=== PATIENT | male | born 1945 | race Caucasian/White ===

== ENCOUNTER 2017-04-13 19:05 | Emergency (ER) | payer MEDICARE ==
[~2017-04-13] VITALS: Ht 167.6 cm; Wt 74.0 kg
[2017-04-13 19:10] VITALS: Ht 167.6 cm; Wt 74.0 kg
[2017-04-13] MEDS ORDERED: AMOX1TAB10 PO (20:31)
--- NOTE | 2017-04-13 20:38 | ERD ---
ER Documentation Chief Complaint Date/Time DATE: 04/13/17 TIME: 20:36 Chief Complaint dog bite back area HPI 71-year-old male presents here in emergency department for complaints of a dog bite wound on the right back area today. Patient last tetanus immunization was 3 years ago. Patient is complaining of pain sharp pain 4/10 scale, is worse upon touching the area. The dog had complete immunizations. Patient did not take any medications to help with symptoms. ROS All systems reviewed and are negative except as per history of present illness. Medications Home Meds Active Scripts Amoxicillin/Potassium Clav (Amox-Clav 875-125 mg Tablet) 875-125 mg Tab, 1 TAB PO BID for 7 Days, #14 TAB Prov:JANELLE JUÁREZ NP 04/13/17 Allergies Allergies: Coded Allergies: No Known Allergy (Unverified , 04/13/17) PMhx/Soc last tetanus immunization 3 yrs ago Medical and Surgical Hx: pt denies Surgical Hx History of Surgery: No Anesthesia Reaction: No Hx Neurological Disorder: No Hx Respiratory Disorders: No Hx Cardiac Disorders: Yes (htn) Hx Psychiatric Problems: No Hx Miscellaneous Medical Probl: No Hx Alcohol Use: No Hx Substance Use: No Hx Tobacco Use: No Smoking Status: Never smoker FmHx Family History: No coronary disease, No diabetes, No other Physical Exam Vitals Vital Signs Date Time Temp Pulse Resp B/P Pulse Ox O2 Delivery O2 Flow Rate FiO2 04/13/17 19:10 97.8 90 20 149/66 98 Physical Exam GENERAL: The patient is well developed and appropriate for usual state of health, in no apparent distress. CHEST: Clear to auscultation bilaterally. There are no rales, wheezes or rhonchi. HEART: Regular rate and rhythm. No murmurs, clicks, rubs or gallops. No S3 or S4. ABDOMEN: Soft, nontender and nondistended. Good bowel sounds. No rebound or guarding. No gross peritonitis. No gross organomegaly or masses. No Sunshine sign or McBurney point tenderness. BACK: No midline or flank tenderness. EXTREMITIES: Equal pulses bilaterally. There is no peripheral clubbing, cyanosis or edema. No focal swelling or erythema. Full range of motion. Grossly neurovascularly intact. NEURO: Alert and oriented. Cranial nerves 2-12 intact. Motor strength in all 4 extremities with 5/5 strength. Sensation grossly intact. Normal speech and gait. SKIN: Noted abrasion on the right buttock area from the dog bite. No laceration noted. There is no apparent ecchymosis or petechia. The skin is warm and dry. HEMATOLOGIC AND LYMPHATIC: There is no evidence of excessive bruising or lymphedema. No gross cervical, axillary, or inguinal lymphadenopathy. Procedures/MDM Medical decision making: Patient had a abrasion from a dog bite on the right back area. No lacerations noted. Skin repair not indicated at this time. Patient last tetanus immunization 3 years ago. The dog has complete immunizations. Patient was given Augmentin to prevent infection, was advised to do wound care of affected area, when checked with primary care doctor in 2 days. Patient was advised to return to emergency department for any worsening symptoms. Disposition: Home. Stable. Departure Diagnosis: Primary Impression: Dog bite Encounter type: initial encounter Qualified Code: W54.0XXA - Dog bite, initial encounter Condition: Stable Patient Instructions: Dog Bite JANELLE JUÁREZ NP Apr 13, 2017 20:38
[2017-04-13 20:58] VITALS: BP 166/72; PULSE 78; RESP 20
== END 2017-04-13 21:24 | disposition home or self-care (01) ==
LOC: FTE 19:05
DX: S31.815A Open bite of right buttock, initial encounter (principal); S30.810A Abrasion of lower back and pelvis, initial encounter; I10 Essential (primary) hypertension; W54.0XXA Bitten by dog, initial encounter; Y92.9 Unspecified place or not applicable
CPT/HCPCS: 99283